=== PATIENT | female | born 1965 | race Caucasian/White ===

== ENCOUNTER 2018-12-14 05:15 | Inpatient (IN) | payer OTHER ==
[~2018-12-14 05:15] MED LIST: Ropivacaine 35 ML, dexAMETHasone 8 MG, EPINEPHrine 0.4 MG, Sodium Chloride 0.9% 42.6 ML NERVRT SCH
[2018-12-14] MEDS ORDERED: Acetaminophen 500 MG Tab PO ONE (05:40)
[2018-12-14] MEDS ORDERED: Scopolamine 1.5 MG Transdermal Patch TOP ONE (05:40)
[2018-12-14] MEDS ORDERED: Dextrose 5%-Lactated Ringers 1,000 ML IV SCH (06:00)
[2018-12-14] MEDS ORDERED: Bupivacaine 0.5%/EPINEPHrine 1:200,000 50 ML MDV ONE (06:45)
[2018-12-14] MEDS ORDERED: fentaNYL 250 MCG/5 ML SDV ONE ×2 (06:45→08:19)
[2018-12-14] MEDS ORDERED: Dexamethasone 4 MG/ML SDV ONE (06:46)
[2018-12-14] MEDS ORDERED: Succinylcholine 200 MG/10 ML MDV ONE (06:46)
[2018-12-14] MEDS ORDERED: Propofol 200 MG/20 ML SDV ONE (06:46)
[2018-12-14] MEDS ORDERED: Neostigmine Methylsulfate 1 MG/ML 5 ML Syringe ONE (06:46)
[2018-12-14] MEDS ORDERED: Glycopyrrolate 0.2 MG/ML 5 ML MDV ONE (06:46)
[2018-12-14] MEDS ORDERED: Ondansetron 4 MG/2 ML SDV ONE (06:46)
[2018-12-14] MEDS ORDERED: Rocuronium 50 MG/5 ML Vial ONE (06:46)
[2018-12-14] MEDS ORDERED: ceFAZolin 2 GM in Premix Bag 1 BAG IV ONE (07:15)
[2018-12-14] MEDS ORDERED: Ketamine 50 MG in Sodium Chloride 0.9% 49.5 ML IV SCH (07:30)
[2018-12-14] MEDS ORDERED: Ketamine 500 MG/5 ML MDV IV SCH (07:30)
[2018-12-14] MEDS ORDERED: Meropenem 500 MG SDV ONE (07:43)
[2018-12-14] MEDS ORDERED: Lidocaine 1% with EPINEPHrine 1:100,000 50 ML MDV ONE (08:04)
[2018-12-14] MEDS ORDERED: Bupivacaine 0.5% 50 ML MDV ONE (08:04)
[2018-12-14] MEDS ORDERED: HYDROmorphone/Normal Saline 15 MG/30 ML PCA IV SCH (08:45)
[2018-12-14] MEDS ORDERED: Naloxone 0.4 MG/ML SDV IV PRN (08:46)
[2018-12-14] MEDS ORDERED: HYDROmorphone/Normal Saline 15 MG/30 ML PCA IV ONE (08:47)
[2018-12-14] MEDS ORDERED: HYDROmorphone/Normal Saline 15 MG/30 ML PCA IV PRN (09:00)
[2018-12-14] MEDS ORDERED: hydrOXYzine HCl 100 MG/2 ML SDV IM PRN (10:10)
[2018-12-14] MEDS ORDERED: Ondansetron 4 MG/2 ML SDV IVPUSH PRN (10:10)
[2018-12-14] MEDS ORDERED: Cyclobenzaprine 10 MG Tab PO PRN (10:11)
[2018-12-14] MEDS: ceFAZolin 2 GM in Premix Bag 1 BAG IV SCH ×2 (13:52→21:23)
[2018-12-14] MEDS: Dextrose 5%-Lactated Ringers 1,000 ML IV SCH (17:02)
[2018-12-14] MEDS: Acetaminophen/oxyCODONE 325-5 MG Tab PO PRN (19:55)
[2018-12-15] MEDS: Dextrose 5%-Lactated Ringers 1,000 ML IV SCH (00:29)
[2018-12-15] MEDS: Acetaminophen/oxyCODONE 325-5 MG Tab PO PRN ×3 (01:13→11:44)
[2018-12-15] MEDS: ceFAZolin 2 GM in Premix Bag 1 BAG IV SCH (05:36)
--- NOTE | 2018-12-15 08:29 | OR ---
DATE OF PROCEDURE: 12/14/2018 SURGEON: Jacob Vogt MD PREOPERATIVE DIAGNOSIS: Incisional hernia. POSTOPERATIVE DIAGNOSES: 1. Incarcerated incisional hernia. 2. Extensive intraabdominal adhesions. OPERATIVE PROCEDURES: Exploratory laparotomy with: 1. Repair of incarcerated incisional hernia with mesh (44216, [id number]). 2. Placement of Vicryl mesh ([id number]). ANESTHESIA: General. STEAM STATION SUPERVISOR: Shasha Agrawal PA-C. INDICATION FOR PROCEDURE: This is a 53-year-old, status post previous open laparotomy through an upper midline incision, presenting with a large incisional hernia in that location. The plan is to proceed with an open repair, given the relatively broad nature of the fascial defect. The potential risks of the procedure including bleeding, infection, leaks from various GI tract closures, possibility of the mesh becoming infected, or the hernia recurring were all reviewed, and the patient wishes to proceed. DETAILS OF PROCEDURE: The patient was taken to the operating room and placed in a supine position. After general endotracheal anesthesia was induced, a Ramos catheter was inserted (this was removed at the end of the procedure), and the abdomen was prepped and draped. The upper midline incision was then reused and carried down through the skin and subcutaneous tissue. Centrally, over this upper incision, the broad-based hernia was encountered. The hernia sac was entered and reflected away from the edges of the fascia. There was quite a bit in the way of adhesions between the small bowel, omentum, and the anterior abdominal wall. These were taken down using combination of cautery and sharp dissection. This included reduction of some omentum, which was incarcerated within the surface of the hernia peritoneum. Once the edges were cleared satisfactorily to allow placement of the mesh, a Ventrio ST hernia patch measuring 13 x 17 cm was selected. This appeared to provide a nice margin away from the fascial edges. At roughly 5 cm intervals around its circumference, 2-0 Vicryl sutures were placed on the polypropylene side of the mesh, and the mesh was then placed in antibiotic-containing saline solution. Stab wounds were then placed in the abdominal wall where the sutures are to be pulled up. Once these were in place, the upper half of the sutures were placed, pulling the mesh into position in that location. To limit recurrent adhesion formation, Vicryl mesh was then placed underneath the newly-placed Ventrio ST patch and then from there downward toward the pelvis, to displace the pelvic and abdominal crawford from the underlying viscera to reduce chances of adhesion formation. Remaining sutures were then pulled up through the stab wounds, thus fixing the mesh in general good position. The mesh was then circumferentially affixed with titanium tacking screws, with the screws being placed in the underlying shelf of the mesh so as to avoid contact with the viscera. Once this was accomplished, the midline fascia was then approximated with a #2 Vicryl stitch, the subcutaneous tissue with 4-0 Vicryl, as was the subdermal tissue, and the skin closed with brittany. Dressing was applied. The patient was taken to the recovery room in a satisfactory condition. Physician housekeeper and laundry assistant, Shasha Agrawal, played an essential role in assisting in this case, helping to position the patient, retract structures as needed, as well as suturing and cutting sutures when indicated. Her presence improved patient safety and decreased the operative time. Jacob Vogt MD /[id number]
--- NOTE | 2018-12-15 08:32 | DISCH ---
ADMISSION DIAGNOSIS: 1. Incarcerated incisional hernia. 2. Status post Liv-en-Y gastric bypass surgery. 3. Unspecified surgical malabsorption. 4. B12 deficiency. 5. Vitamin D deficiency. 6. Status post splenectomy. DISCHARGE DIAGNOSES: Open repair of incarcerated incisional hernia with mesh and placement of Vicryl mesh for incarcerated incisional hernia and extensive intraabdominal adhesions. Date of surgery: 12/14/2018. HISTORY: Jocelyne Velasquez is a 53-year-old female with a large between baseball and softball size incisional hernia. After preoperative evaluation and discussion of possible risks and possible complications, she wished to proceed with surgical procedure. HOSPITAL COURSE: Jocelyne had her surgery on 12/14/2018. She had no operative complications. On postoperative day #1, her activity was good. Pain was well managed. Intake adequate. Vital signs stable. She was able to be discharged to home without any complications. PHYSICAL EXAMINATION: GENERAL: Jocelyne Velasquez is a 53-year-old female. VITAL SIGNS: Height 5 feet 4.8 inches, weight is 154 pounds. TPR 97, 45, 16, blood pressure 152/72. HEENT: Negative. NECK: Supple. HEART: Regular rate and rhythm. LUNGS: Clear. ABDOMEN: Dressing dry and intact. Aquacel dressing on. Pressure dressing over the Aquacel dressing. Abdominal binder is on. EXTREMITIES: Without peripheral edema. DISPOSITION: Discharged to home. CONDITION: Stable and improving. FOLLOWUP: Followup appointment with Shasha Agrawal PA-C, on 12/23/2018 at 11 a.m. NEW PRESCRIPTIONS: Percocet 5/325 mg one every 6 hours p.r.nMukul grace, #[id number], faxed to [facility] pharmacy. She is to resume her home medication of calcium carbonate one tablet daily, vitamin B12 1000 mcg sublingual daily, levothyroxine 137 mcg oral daily, multivitamin one tablet daily, thiamine 100 mg oral daily, vitamin B complex one daily. DIET: Usual diet as tolerated. Drink 8 to 10 glasses of water a day. ACTIVITY: As tolerated. No lifting greater than 10 pounds for 6 weeks. Driving: Do not drive for 1 week and while on pain medication. Shower/bathing: May shower. DISCHARGE INSTRUCTIONS: Notify provider if any fever, increased pain, nausea, or vomiting. Keep site clean and dry. Wear abdominal binder with pressure dressing over hernia site for 6 weeks and then as tolerated. SPECIAL INSTRUCTIONS: Use incentive spirometer 10 times every hour while awake for 1 week.
== END 2018-12-15 13:24 | disposition home or self-care (01) | DRG 354 ==
LOC: JP.SDSSCHI 05:15 → JP.SDS 05:15 → EDSTATUS 07:15 → JP.2SS 08:45
PROVIDERS: ADMIT Surgery; ATTEND Surgery
PROC: 0WUF0JZ Supplement Abdominal Wall with Synthetic Substitute, Open Approach (ICD-10-PCS; principal; 2018-12-14)
PROC: 3E0M05Z Introduction of Adhesion Barrier into Peritoneal Cavity, Open Approach (ICD-10-PCS; 2018-12-14)
DX: K43.0 Incisional hernia with obstruction, without gangrene (principal); K91.2 Postsurgical malabsorption, not elsewhere classified; K66.0 Peritoneal adhesions (postprocedural) (postinfection); E03.9 Hypothyroidism, unspecified; Z98.84 Bariatric surgery status; Z98.0 Intestinal bypass and anastomosis status; E55.9 Vitamin D deficiency, unspecified; E53.8 Deficiency of other specified B group vitamins; E53.9 Vitamin B deficiency, unspecified; Z90.81 Acquired absence of spleen
CPT/HCPCS: 36415; 80053; 82607; 82728; 83735; 84100; 84443; 85027; 94762; A9270-GY; C1713; C1781; J0171; J0330; J0690; J1100; J1170; J2020; J2185; J2405; J2704; J2710; J2795; J3010; J3490; J7042; J7050